=== PATIENT | male | born 1995 | race Caucasian/White ===

== ENCOUNTER 2016-07-10 22:38 | Inpatient (IN) | payer BC, OTHER ==
[~2016-07-10] VITALS: Ht 182.9 cm; Wt 81.6 kg
[2016-07-11] VITALS (7 sets, daily range): BP systolic 95–117; BP diastolic 54–71
[2016-07-11] MEDS ORDERED: MAG HYDROX/AL HYDROX/SIMETH 30 ML LIQUID UDC PO PRN (02:30)
[2016-07-11] MEDS ORDERED: LORAZEPAM 2 MG/1 ML VIAL IM PRN (02:30)
[2016-07-11] MEDS ORDERED: THIAMINE HCL 200 MG/2 ML VIAL IM ONE (02:30)
[2016-07-11] MEDS ORDERED: ACETAMINOPHEN 325 MG TABLET PO PRN (02:30)
[2016-07-11] MEDS ORDERED: LOPERAMIDE HCL 2 MG CAPSULE PO PRN ×2 (02:30)
[2016-07-11] MEDS ORDERED: ONDANSETRON ODT 4 MG TAB.RAPDIS SL PRN (02:30)
[2016-07-11] MEDS ORDERED: DIAZEPAM 10 MG TABLET PO PRN ×4 (02:30→12:00)
[2016-07-11] MEDS ORDERED: LORAZEPAM 1 MG TABLET PO PRN ×2 (02:30)
[2016-07-11] MEDS ORDERED: DIAZEPAM 5 MG TABLET PO PRN ×2 (02:30→12:00)
[2016-07-11] MEDS ORDERED: DICYCLOMINE HCL 20 MG TABLET PO PRN (02:30)
[2016-07-11] MEDS ORDERED: MAGNESIUM HYDROXIDE 30 ML LIQUID UDC PO PRN (02:30)
--- NOTE | 2016-07-11 02:40 | NUR ---
ADMISSION Pt is a 20 yo male who arrived [facility] the [facility] at 0050 on 07/11/16 for medically supervised detox. He is A&O x4 and ambulatory with a steady gait. He was oriented to the unit and shown to his room. Body check performed by T and skin check performed by nurse. Pt does not appear intoxicated and answers questions appropriately. He reports an allergy to Haldol, is full code status, and on a regular diet. Vital signs are B/P 117/71, HR 79, RR 16, O2 sat 97%, and T 97.5, left arm pain 5/10. He has a PMH of seizures related to withdrawal and overdose, MRSA of left arm chemical burn 10/2015, chronic migraines, anxiety, and depression. Last seizure was 12/2015. Pt self reports that he overdosed on 07/09/16 at his home and woke up 07/10/16. Lung sounds clear, PERRLA, bowel sounds present, brisk capillary refill, granite countertop installer equal and strong. Pt has bilateral forearm track harris. The left forearm has a round, warm, hardened area beneath the skin. He reports pain in the left arm which is relieved when elevated. Hands are warm and peripheral pulses present. History of Use 1) ETOH/Whiskey 16 oz 5 days/week for 6 weeks. Last drank 8 oz on 07/09/16. He has drank alcohol since age 12. 2) Xanax 10mg 5 days/week for 6 weeks. Last used 70mg over 3 days 07/07, 07/08, 07/09. He has used BZD's since age 15. 3) Methamphetamine 1 gram 4 days/week for 2 months. Last used 1 gram on 07/09/16. He has used Meth for 6 months. 4) Marijuana 2 grams per day for 2 months. Last used 1 gram on 07/10/16. He has used marijuana for 5 years. Treatment history 1) [facility] 12/2015 for 37 days. Pt had 22 days of sobriety while in treatment. He went to a sober living in [place] after [facility]. Pt admitted to using inhalants while in treatment. His longest period of sobriety is 22 days. Pt smokes cigarettes 10-20 per day. He decided to come to treatment today because "I woke up from an overdose today". Symptoms when he does not use include "pain, insomnia, sweats, tremors". CIWA on admission is 7. Pt has anxiety, flushing, and headache. He does not have a primary care physician at home. Admission orders received. Pt educated regarding use of the call light and all questions answered. Fall and seizure precautions in place. Bed is down with call light in reach.
[2016-07-11] MEDS: IBUPROFEN 400 MG TABLET PO PRN ×2 (02:41→08:15)
[2016-07-11] MEDS ORDERED: IBUPROFEN 400 MG TABLET ONE (02:43)
--- NOTE | 2016-07-11 02:45 | NUR ---
PRN Motrin administration Pt c/o left arm pain 08/12 r/t IV drug use. PRN Motrin administered per orders.
--- NOTE | 2016-07-11 07:01 | NUR ---
Start of Shift Endorsement received from nightshift nurse. Pt is a 20 y/o male admitted for alcohol and xanax dependence. Pt has been placed on a 5 day Subutex taper and 3 day Valium taper. Pt is moderately withdrawing at this time AEB CIWA 7 0400. Pt presents Hx of a seizures and overdose. Pt has received PRN Motrin. VS WNL, Full Code. PT is alert and oriented x4. Pt is in STABLE condition at this time. Remains compliant with medication and diet regimen. All needs have been met, All safety measures in place per hospital policy. Bed in lowest position, side rails up x2, call-light within reach. Will continue to monitor
--- NOTE | 2016-07-11 07:20 | NUR ---
END OF SHIFT Report provided to day shift nurse. Pt is lying in bed resting. He is a 20 [facility]TOH and BZD Dependence with a h/o methamphetamine abuse. PRN Ibuprofen administered for left arm pain. CIWA on admission was 7. He drank 710mL and slept 4 hours. Pt was unable to provide urine sample for UDS. Fall and seizure precautions in place. Bed is down with call light in reach.
[2016-07-11] MEDS: THIAMINE HCL 100 MG TABLET PO SCH (08:14)
[2016-07-11] MEDS: FOLIC ACID 1 MG TABLET PO SCH (08:15)
[2016-07-11] MEDS: MULTIVITAMINS,THERAPEUTIC TABLET PO SCH (08:15)
[2016-07-11 09:40] LABS: *AMPHETAMINE, URINE POSITIVE (NEGATIVE); *BARBITURATE, URINE NEGATIVE (NEGATIVE); *CANNABINOID, URINE POSITIVE (NEGATIVE); *COCCAINE, URINE NEGATIVE (NEGATIVE); *OPIATE, URINE NEGATIVE (NEGATIVE); *PHENCYCLIDINE SCREEN,URINE NEGATIVE (NEGATIVE)
[2016-07-11 11:59] LABS: BASOPHILS # (AUTO) 0.1 K/uL (0.0-0.2); BASOPHILS % (AUTO) 1.2 % (0.0-2.0); EOSINOPHILS # (AUTO) 0.8 K/uL (0.0-0.7); EOSINOPHILS % (AUTO) 12.2 % (0.0-7.0); HEMATOCRIT 46.1 % (35.0-45.0); HEMOGLOBIN 15.5 g/dL (11.5-15.5); LYMPHOCYTES # (AUTO) 2.4 K/uL (0.8-4.8); LYMPHOCYTES % (AUTO) 34.6 % (20.5-74.5); MEAN CORPUSCULAR HEMOGLOBIN 29.8 uug (27.0-31.0); MEAN CORPUSCULAR HGB CONC 34 g/dL (32.0-37.0); MEAN CORPUSCULAR VOLUME 88.8 fL (77.0-95.0); MONOCYTES # (AUTO) 0.8 K/uL (0.1-1.30); NEUTROPHILS # (AUTO) 2.8 K/uL (1.8-8.9); PLATELET COUNT (AUTO) 289 K/uL (150-450); RED BLOOD CELL COUNT(AUTO) 5.19 MIL/uL (3.90-5.30); RED CELL DISTRIBUTION WIDTH 13.1 % (11.5-14.5); WHITE BLOOD COUNT (AUTO) 6.9 K/uL (4.5-14.5)
[2016-07-11] MEDS ORDERED: SUMATRIPTAN SUCCINATE 50 MG TABLET PO PRN (12:00)
[2016-07-11] MEDS ORDERED: ASPIRIN/ACETAMINOPHEN/CAFFEINE TABLET PO PRN (12:00)
[2016-07-11 12:23] LABS: ETHANOL < 3 MG/DL (0-0)
[2016-07-11 12:25] LABS: ALANINE AMINOTRANSFERASE 27 U/L (16-63); ALBUMIN 4.1 g/dL (3.4-5.0); ALKALINE PHOSPHATASE 51 U/L (50-136); AMYLASE 38 U/L (25-115); ASPARTATE AMINOTRANSFERASE 20 U/L (15-37); BILIRUBIN,TOTAL 0.5 mg/dL (0.2-1.0); CALCIUM 9.3 mg/dL (8.5-10.1); CHLORIDE 104 mmol/L (98-107); GFR 95 mL/min (>60); GLUCOSE 115 mg/dL (74-106); LIPASE 164 U/L (73-393); MAGNESIUM 2.2 mg/dL (1.8-2.4); POTASSIUM 3.9 mmol/L (3.5-5.1); SODIUM SERUM 142 mmol/L (136-145); TOTAL PROTEIN, SERUM 7.6 g/dL (6.4-8.2); UREA NITROGEN, BLOOD 10 mg/dL (7-18)
[2016-07-11 12:26] LABS: CARBON DIOXIDE 33 mmol/L (21-32)
[2016-07-11] MEDS: DIAZEPAM 10 MG TABLET PO SCH ×3 (12:30→20:24)
[2016-07-11] MEDS: ESCITALOPRAM OXALATE 10 MG TABLET PO SCH (12:30)
[2016-07-11 12:32] LABS: THYROID STIMULATING HORMONE 0.541 mIU/mL (0.358-3.740)
[2016-07-11 12:37] LABS: HIV-1 p24 ANTIGEN NON REACTIVE (NONREACTIVE); HIV-1/2 ANTIBODY NON REACTIVE (NONREACTIVE)
[2016-07-11] MEDS: GABAPENTIN 300 MG CAPSULE PO SCH ×2 (15:11→20:24)
--- NOTE | 2016-07-11 15:11 | NUR ---
PRN Medication Pt reports having diarrhea x2. Administered Imodium 4mg per MD.
--- NOTE | 2016-07-11 19:29 | NUR ---
End of Shift Endorsement given to nightshift nurse. Pt is a 20 y/o male admitted for alcohol and xanax dependence. Pt has been placed on a 5 day Subutex taper and 3 day Valium taper. Pt is mildly withdrawing at this time AEB CIWA 2 1600. Pt presents Hx of a seizures and overdose. Pt has received PRN Motrin for arm pain and Imodium for reported diarrhea. Pt has participated in groups and activities. Intake: 2200ml, Void x4, BM x0. VS WNL, Full Code. PT is alert and oriented x4. Pt is in STABLE condition at this time. Remains compliant with medication and diet regimen. All needs have been met, All safety measures in place per hospital policy. Bed in lowest position, side rails up x2, call-light within reach. Will continue to monitor
--- NOTE | 2016-07-11 20:00 | NUR ---
START OF SHIFT Received report from day shift nurse. Pt attended a group meeting and returned to his room after. He is a 20 yo male admitted to [facility] today for ETOH and BZD Dependence. He is A&O x4 and ambulatory. Allergic to haldol, full code, and on a regular diet. He has a PMH of seizure related to overdose and withdrawals, MRSA of left arm chemical burn 10/2015, chronic migraines, anxiety, and depression. On admission he admitted to drinking ETOH/whiskey 16oz 5 days/week, Xanax 10mg 5 days per week, methamphetamine IV 1 gram 4x/week, marijuana 2 grams per day. He reports feeling "uneasy", anxious, having a knot in his stomach, with occasional nausea and a headache. He has flushed and moist skin. Pt has pain and mild weakness of the left upper extremity due to IV drug use. MD aware. He denies any recent episodes of diarrhea. Pt started a 5 day valium taper today. Fall and seizure precautions in place. Bed is down with call light in reach.
--- NOTE | 2016-07-11 20:25 | NUR ---
PRN Tylenol administration Pt reports left wrist pain 5/10. PRN Tylenol administered.
--- NOTE | 2016-07-11 21:25 | NUR ---
PRN Tylenol reassessment PRN Tylenol somewhat effective. Pt reports reduced left wrist pain. No further medication requested.
[2016-07-11] MEDS: diphenhydrAMINE 50 MG CAPSULE PO PRN (22:09)
[2016-07-11] MEDS: HYDROXYZINE PAMOATE 25 MG CAPSULE PO PRN (22:09)
--- NOTE | 2016-07-11 22:10 | NUR ---
PRN Benadryl and Vistaril reassessment Pt c/o feeling anxious and unable to relax to fall asleep. Face is flushed and skin is moist. PRN Vistaril and Benadryl administered. Addendum: 07/12/16 at 0533 by GINNA RAGSDALE RN Correction: PRN Benadryl and Vistaril administration.
--- NOTE | 2016-07-11 22:10 | NUR ---
PRN Imitrex Pt c/o migraine headache. PRN Imitrex administered.
--- NOTE | 2016-07-11 23:10 | NUR ---
PRN Vistaril and Benadryl reassessment PRN Vistaril and Benadryl effective. Pt is lying in bed resting with eyes closed. Respirations even and unlabored. Bed is down with call light in reach.
--- NOTE | 2016-07-11 23:10 | NUR ---
PRN Imitrex reassessment PRN Imitrex effective. Pt is lying comfortably in bed resting with eyes closed. Respirations even and unlabored. Bed is down with call light in reach.
[2016-07-12] VITALS: BP 101/53
[2016-07-12 04:00] VITALS: BP 102/55
--- NOTE | 2016-07-12 07:22 | NUR ---
END OF SHIFT Received report from day shift nurse. Pt attended a group meeting and returned to his room after. He is a 20 yo male admitted to [facility] for ETOH and BZD Dependence. He is A&O x4 and ambulatory. Allergic to haldol, full code, and on a regular diet. He has a PMH of seizure related to overdose and withdrawals, MRSA of left arm chemical burn 10/2015, chronic migraines, anxiety, and depression. On admission he admitted to drinking ETOH/whiskey 16oz 5 days/week, Xanax 10mg 5 days per week, methamphetamine IV 1 gram 4x/week, marijuana 2 grams per day. Pt has pain and mild weakness of the left upper extremity due to IV drug use. MD aware. He is ordered an MRI with contrast of the left arm. Pt started a 5 day valium taper on 07/11. No diarrhea throughout the night. PRN Vistaril, Benadryl, and Imitrex administered. Last CIWA was 7. He drank 710mL and slept 7 hours. Fall and seizure precautions in place. Bed is down with call light in reach.
--- NOTE | 2016-07-12 07:25 | NUR ---
Start Of Shift Received report from second shift supervisor nurse. Pt is a 20 year old male admitted on 07/11/16 ETOH and BZD Dependence. Pt is full code, regular diet on fall and seizure precautions states that he is allergic to haloperidol. He has a PMH of seizure related to overdose and withdrawals, MRSA of left arm chemical burn 10/2015, chronic migraines, anxiety, and depression. Pt has pain and mild weakness of the left upper extremity due to IV drug use. MD aware. He is ordered an MRI with contrast of the left arm today. Pt started a 5 day Valium taper on 07/11. Pt received PRN Vistaril, Benadryl, and Imitrex last night which was effective per second shift supervisor nurse. Treatment plan tolerated well by the patient as evidenced by ptst last CIWA score of 7 which was taken at 0400. Pt slept a total of 7 hours last night. Pt is currently in his room laying in bed watching TV. All safety measures in place per hospital policy. Bed in lowest position, side rails up x2, call-light within reach. Will continue to monitor and provide support.
[2016-07-12 08:00] VITALS: BP 112/66
[2016-07-12] MEDS ORDERED: TUBERCULIN,PURIF.PROT.DERIV. 5 TU/0.1 ML TEST ID ONE (09:00)
[2016-07-12] MEDS: ESCITALOPRAM OXALATE 10 MG TABLET PO SCH (10:01)
[2016-07-12] MEDS: DIAZEPAM 10 MG TABLET PO SCH ×4 (10:01→21:37)
[2016-07-12] MEDS: THIAMINE HCL 100 MG TABLET PO SCH (10:01)
[2016-07-12] MEDS: FOLIC ACID 1 MG TABLET PO SCH (10:01)
[2016-07-12] MEDS: GABAPENTIN 300 MG CAPSULE PO SCH ×3 (10:01→21:37)
[2016-07-12] MEDS: MULTIVITAMINS,THERAPEUTIC TABLET PO SCH (10:02)
--- NOTE | 2016-07-12 11:32 | NUR ---
TEXTED DR. PETERSEN FOR MRI APPROVAL.
--- NOTE | 2016-07-12 11:52 | NUR ---
SPOKE TO PATIENTS NURSE YOLANDA, TO SENT THE PATIENT TO [facility] @ 7PM FOR 7.30PM APPT AND PATIENT TO HAVE A GOOD WORKING IV / MRI CHECKLIST AND CONSTANT DONE AN SIGNED.NURSE HAVE MY PHONE # INCASE IF ANY CHANGES.
--- NOTE | 2016-07-12 11:53 | NUR ---
Communication with Radiology Received a call from Stef Gillette from radiology, pt is approved for MRI with contrast, Med response contacted a brain picker was reserved @ 1900 from [facility] 3rd floor. Pt will be picked up @ 1900 to be transferred to [facility] for the procedure. Stef Gillette requested for pt to have a 20G working IV, MRI check list and a signed consent form. aware of transfer. Will continue to monitor and provide support.
[2016-07-12 12:00] VITALS: BP 128/82
[2016-07-12] MEDS: CLONIDINE HCL 0.1 MG TABLET PO PRN ×2 (13:00→22:55)
[2016-07-12] MEDS ORDERED: DIAZEPAM 10 MG TABLET PO ONE (13:00)
[2016-07-12 16:00] VITALS: BP 122/82
[2016-07-12] MEDS ORDERED: GADOVERSETAMIDE 2.5 MMOL/5 ML VIAL ONE (16:05)
--- NOTE | 2016-07-12 18:55 | NUR ---
Pt Picked up Pt has been picked up by the ambulance to be transferred to [facility] for the procedure. report given to the shuttle truck driver, pt had an IV inserted in his left AC 20G, MRI check list completed consent signed and given to shuttle truck driver Pts VS WNL pt left in stable condition. MD aware of patients departure.
--- NOTE | 2016-07-12 19:00 | NUR ---
START OF SHIFT NOTE Received report from day shift nurse. Pt is 20 y o male, admitted on 07/11/16 for ETOH (16 oz x 5 days a week), Xanax (10 mg daily x 5 days a week), methamphetamine and marijuana dependence. P is on 5 day Valium taper started 07/11/16. Pt currently in [facility] for scheduled MRI of right arm. PMH of migraines, anxiety, depression, seizures r/t withdrawal. Pt allergic to Hald ol, is on regular diet, full code. Pt is on fall and seizure precautions. Addendum: 07/14/16 at 0615 by ROSALINE GOMEZ RN left arm
--- NOTE | 2016-07-12 19:36 | NUR ---
End Of Shift Pt is a 20 year old male admitted on 07/11/16 ETOH and BZD Dependence. Pt is full code, regular diet on fall and seizure precautions states that he is allergic to haloperidol. He has a PMH of seizure related to overdose and withdrawals, MRSA of left arm chemical burn 10/2015, chronic migraines, anxiety, and depression. Pt has pain and mild weakness of the left upper extremity due to IV drug use. MD aware pt has been transferred to [facility] for MRI procedure. Pt received CXR for clearance of active TB. Pt had a 20G IV inserted in his left AC. Pt started a 5 day valium taper on 07/11. Pt received PRN Clonidine medication was effective. Treatment plan tolerated well by the patient as evidenced by ptst last CIWA score of 5 which was taken at 1600. Pts vital signs within normal limits, A/Ox4, denies chest pain. Respirations even unlabored, lungs clear upon auscultation abdomen soft and non- distended. Pt denies nausea, vomiting and diarrhea. Pt total fluid intake was 2334ml with 2 voids and no stool. Safety measures in place, call light within reach. All pertinent information discussed with third shift lieutenant, endorsement given to third shift lieutenant nurse.
[2016-07-12 20:00] VITALS: BP 125/72
--- NOTE | 2016-07-12 20:45 | NUR ---
PT BACK TO FLOOR Pt back from diagnostic procedure, aaox4, ambulatory. PIV to right forearm 22G, discontinue per order. VS taken and recorded. Pt reports mild anxiety, fatigue, tingling to right arm, weak hand manager surgery to right arm, sweats. Radial pulses strong and symmetrical, cap refill <3 sec. Will continue to monitor Addendum: 07/14/16 at 0615 by ROSALINE GOMEZ RN left forearm
--- NOTE | 2016-07-12 22:25 | NUR ---
RN note IV removal Pt's IV access removed, pressure dressing applied, no bleeding noted. Catheter is intact.
[2016-07-12] MEDS: diphenhydrAMINE 50 MG CAPSULE PO PRN (22:55)
--- NOTE | 2016-07-12 22:55 | NUR ---
PRN BENADRYL AND CLONIDINE Pt c/o anxiety, sweats and insomnia, reinforced on deep breathing for relaxation - without effect. BP 119/68, administered Clonidine 0.1 mg PO prn and Benadryl 50 mg PO prn. Side rails up x 2, call light within reach, bed locked in lowest position. Will continue to monitor
[2016-07-13] VITALS: BP 94/45
--- NOTE | 2016-07-13 | NUR ---
REASSESSMENT Pt in bed, resting quietly. Noted moderate sweat, pt reports decrease in anxiety and states "i feel relaxed now". CIWA score 2. Will continue to monitor
[2016-07-13 04:00] VITALS: BP 93/44
--- NOTE | 2016-07-13 04:00 | NUR ---
ADRY DEFERRED Pt ADRY aparicio assessment deferred per MD order Addendum: 07/13/16 at 0528 by ROSALINE GOMEZ RN Amended: Links added.
--- NOTE | 2016-07-13 07:14 | NUR ---
END OF SHIFT NOTE Pt is 20 y o male, admitted on 07/11/16 for ETOH (16 oz x 5 days a week), Xanax (10 mg daily x 5 days a week), methamphetamine and marijuana dependence. Pt is on day 3 of 5 day Valium taper started 07/11/16. Pt experienced withdrawal s/s of anxiety, sweats; COWS scores ranged 5 to 2, last COWS was 2 at 0400. VSS. Pt received prn Clonidine and Benadryl at 2255 for anxiey, sweats, insomnia, medications were effective; pt reported decrease in s/s, was able to sleep for 8 hrs. Pt had MRI of right arm done 07/12/16 r/t loss of sensation and muscular weakness, results pending. PMH of migraines, anxiety, depression, seizures r/t withdrawal. Pt allergic to Haldol, is on regular diet, full code. Pt is on fall and seizure precautions. Repor endorsed to day shift nurse. Addendum: 07/14/16 at 0616 by ROSALINE GOMEZ RN left arm
--- NOTE | 2016-07-13 07:20 | NUR ---
Start Of Shift Received report from material handler 2nd shift nurse. Pt is a 20 year old male admitted on 07/11/16 ETOH and BZD Dependence. Pt is full code, regular diet on fall and seizure precautions reports allergy to haloperidol. Pt in on a 5 day Valium taper started on 07/11/16. Reports PMH of seizure related to overdose and withdrawals, MRSA of left arm chemical burn 10/2015, chronic migraines, anxiety, and depression. Pt been having mild weakness of the left upper extremity due to IV drug use for which he had a contrast MRI completed at [facility] Results pending. MD aware. Pt received PRN Benadryl, and clonidine last night which was effective per material handler 2nd shift nurse. Treatment plan tolerated well by the patient as evidenced by pt's last CIWA score of 2 which was taken at 0400. Pt slept a total of 8 hours last night. Pt is currently in his room laying in bed watching TV. All safety measures in place per hospital policy. Bed in lowest position, side rails up x2, call-light within reach. Will continue to monitor and provide support.
[2016-07-13 08:00] VITALS: BP 118/73
[2016-07-13] MEDS: GABAPENTIN 300 MG CAPSULE PO SCH ×3 (09:59→21:28)
[2016-07-13] MEDS: CLONIDINE HCL 0.1 MG TABLET PO PRN (09:59)
[2016-07-13] MEDS: MULTIVITAMINS,THERAPEUTIC TABLET PO SCH (09:59)
[2016-07-13] MEDS: THIAMINE HCL 100 MG TABLET PO SCH (09:59)
[2016-07-13] MEDS: DIAZEPAM 5 MG TABLET PO SCH ×4 (09:59→21:28)
[2016-07-13] MEDS: FOLIC ACID 1 MG TABLET PO SCH (09:59)
[2016-07-13] MEDS: ESCITALOPRAM OXALATE 10 MG TABLET PO SCH (10:00)
[2016-07-13] MEDS: HYDROXYZINE PAMOATE 25 MG CAPSULE PO PRN ×2 (11:10→23:00)
--- NOTE | 2016-07-13 11:10 | NUR ---
PRN MEDICATION Pt c/o some anxiety requested something for relief, non-pharmacological techniques interventions provided x3 and were not effective. PRN Vistaril 25mg administered PO, educated pt about s/e of medication and when to contact nurse. All needs met, all safety measures in place, will continue to monitor.
[2016-07-13 12:00] VITALS: BP 125/76
--- NOTE | 2016-07-13 12:10 | NUR ---
PRN REASSESSMENT Upon reassessment medication noted to be effective pt reported a decrease in pain to 1/10. Instructed pt to contact nurse if pain reoccurred. All needs met, all safety measures in place will continue to monitor.
[2016-07-13 16:00] VITALS: BP 109/61
--- NOTE | 2016-07-13 19:15 | NUR ---
End Of Shift Pt is a 20 year old male admitted on 07/11/16 ETOH and BZD Dependence. He has a PMH of seizure related to overdose and withdrawals, MRSA of left arm chemical burn 10/2015, chronic migraines, anxiety, and depression. Pt placed a 5 day Valium taper on . Pt received PRN Vistaril for anxiety medication was effective. Treatment plan tolerated well by the patient as evidenced by pt's last CIWA score of 7 which was taken at 1600. Pt's vital signs within normal limits, A/Ox4, denies chest pain. Respirations even unlabored, lungs clear upon auscultation abdomen soft and non- distended. Pt denies nausea, vomiting and diarrhea. Pt total fluid intake was 2710ml with 1 voids and no stool. Safety measures in place, call light within reach. All pertinent information discussed with shift commander, endorsement given to shift commander nurse.
--- NOTE | 2016-07-13 19:42 | NUR ---
START OF SHIFT NOTE Received report from day shift nurse. Pt is 20 y o male, admitted on 07/11/16 for ETOH (16 oz of whiskey 5 days a week), Xanax (10 mg daily for 5 days a week), methamphetamine IV ad marijuana dependence. Pt continues on 5 day valium taper started 07/11/16. Pt in room, aaox4. Reports moderate anxiety, reinforced on relaxations techniques. Pt denies SI/HI. Pt c/o chills, restlessness. Skin intact, warm. No tremors noted. Pt reports tingling to left arm, noted weak hand community representative on left arm. Pt has had MRI of left arm done 07/12/16, no abnormalities noted. RR unlabored, heart rate regular; radial pulses strong and symmetrical. Bowel sounds active x 4, pt denies n/v/d. Pt denies urinary difficulties. PMH of anxiety, depression, migraines, withdrawal seizures. Pt is on fall and seizure precautions. Allergic to Haldol, full code, regular diet. Side rails up x 2, call light within reach, bed locked in lowest position. Will continue with plan of care.
[2016-07-13 20:00] VITALS: BP 138/72
[2016-07-13] MEDS ORDERED: KETOROLAC TROMETHAMINE 30 MG INJ IM PRN (21:00)
[2016-07-13] MEDS ORDERED: IBUPROFEN 600 MG TABLET PO PRN (21:00)
[2016-07-13] MEDS: diphenhydrAMINE 50 MG CAPSULE PO PRN (22:55)
--- NOTE | 2016-07-13 23:00 | NUR ---
PRN BENADRYL AND VISTARIL pr reorts increasing anxiety and insomnia. BP 110/51, HR 85. CIWA score 4. Administered prn Benadryl 50 mg for sleep PO and prn Vistaril 50 mg PO for anxiety. Pt in bed, side rails up x 2, call light within reach, will cont to monitor
[2016-07-14] VITALS: BP 105/53
--- NOTE | 2016-07-14 | NUR ---
REASSESSMENT Pt in bed, ready to sleep; states anxiety level decreased, CIWA =4, BP 105/53, HR 66. Seizure and fall precautions in place. Will continue to monitor
[2016-07-14 04:00] VITALS: BP 130/83
[2016-07-14 05:22] LABS: HEPATITIS B CORE AB, IgM Negative (Negative); HEPATITIS B SURFACE AG Negative (Negative)
--- NOTE | 2016-07-14 07:33 | NUR ---
END OF SHIFT NOTE Pt is 20 y o male, admitted on 07/11/16 for ETOH (16 oz of whiskey 5 days a week), Xanax (10 mg daily for 5 days a week), methamphetamine IV ad marijuana dependence. Pt is on day 4 of 5 day valium taper started 07/11/16. Pt had withdrawal s/s of anxiety, chills, restlessness, tingling to left arm. All schedule medications were given as ordered, pt received prn visaril 50 mg and Benadryl 50 mg at 2300, was effective: pt verbalized relief of anxiety in 1 hr post-administration; slept for total of 6 hrs. VSS. Last CIWA 3 at 0400. PMH of anxiety, depression, migraines, withdrawal seizures. Pt is on fall and seizure precautions. Allergic to Haldol, full code, regular diet. Report endorsed to day shift nurse.
[2016-07-14 08:00] VITALS: BP 106/61
[2016-07-14] MEDS: GABAPENTIN 300 MG CAPSULE PO SCH ×3 (09:00→21:34)
--- NOTE | 2016-07-14 09:00 | NUR ---
PRN CLONIDINE PER PT'S REQUEST GIVEN FOR REPORTED ANXIETY AND RESTLESSNESS. HE STATES THE CLONIDINE HELPS HIM. WILL MONITOR EFFECTIVENESS.
[2016-07-14] MEDS: THIAMINE HCL 100 MG TABLET PO SCH (09:01)
[2016-07-14] MEDS: MULTIVITAMINS,THERAPEUTIC TABLET PO SCH (09:01)
[2016-07-14] MEDS: DIAZEPAM 5 MG TABLET PO SCH ×3 (09:01→21:34)
[2016-07-14] MEDS: ESCITALOPRAM OXALATE 10 MG TABLET PO SCH (09:01)
[2016-07-14] MEDS: FOLIC ACID 1 MG TABLET PO SCH (09:01)
[2016-07-14] MEDS: CLONIDINE HCL 0.1 MG TABLET PO PRN ×2 (09:09→23:12)
--- NOTE | 2016-07-14 09:17 | NUR ---
START OF SHIFT: RECEIVED PT A/O X 4. HE PRESENTS WITH IRRITABLE MOOD AND CONGRUENT AFFECT. HE REPORTS MILD ANXIETY. HE STATES HE SLEPT WELL BUT IT TOOK TIME TO FALL ASLEEP. VALIUM TAPER IN PROGRESS. ADRY 1. ENCOURAGED GROUP ATTENDANCE TO IMPROVE COPING SKILLS AND PREVENT RELAPSE. WILL CONTINUE TO MONITOR AND PROVIDE SAFE AND SUPPORTIVE ENVIRONMENT. Addendum: 07/14/16 at 0921 by SHEREE HOWELL RN START OF SHIFT AT 0805
--- NOTE | 2016-07-14 09:30 | NUR ---
PRN CLONIDINE WAS EFFECTIV. PT STATES HIS ANXIETY AND RESTLESSNESS IS REDUCED.
[2016-07-14 12:00] VITALS: BP 117/70
[2016-07-14 16:00] VITALS: BP 106/64
--- NOTE | 2016-07-14 18:54 | NUR ---
START OF SHIFT NOTE Patient endorsed by outgoing day shift nurse. SBAR report received. Patient is 20 years old male admitted to [facility] on 07/11/16 for Benzo, ETOH, Methamphetamine (IV); and Marijuana Dependence, placed on 5 day Valium Taper started on 07/12/11. Patient reported of Allergy to Haldol, Regular Diet. Patient placed on Full Code, Fall and Seizures Precautions. Past Medical History: Seizures r/t overdose and withdrawal; MRSA of the Left Arms chemical burn on 10/2015; Chronic Migraines. Anxiety Disorder; Depression Disorder. Substance Use History: ETOH: Whiskey: 16 oz 5 days of week for 6 weeks, since 05/30/16. Last used 8 oz on 07/09/16. He has used Alcohol for 8 years. XANAX: 10 mg 5 days/week for 6 weeks, since 05/30/16. Last used 70 mg from 07/07/16 to 07/09/16. He has used Benzo for 5 years. METHAMPHETAMINE IV: 1 gram 4 days/week. Last used 1 gram on 07/09/16. He has used Methamphetamine for6 months. MARIJUANA: 2 grams/daily for 2 months. Last used 1 gram on 07/07/16. He has used Marijuana for 5 years. Recent Hospitalizations/Treatment History: "[facility] since 12/2015 for 37 days and sober living in [place] after". Upon assessment patient is alert and oriented x4. Speech is soft. CIWA 4: c/o increased anxiety, nervousness, sweating, Bone and Joint aches. VS: T: 98.6; BP: 122/68; HR:86; Room Air O2 Sat: 97%; RR: 18. Generalized pain level 5/10.Labs results for MRSA received: negative. Chest X-Ray done: No abnormality found. Doctor aware. Breathing is unlabored and even. Lungs Sounds are clear BS is active in all x 4 quadrants. Last BM's today. Skin is warm and moist by touch. Patient has bilateral FA track harris. Right FA's round, raised, tough area r/t IV drugs's used m/b swelling, numbness and parenthesis. Contrast MRI of the Left Upper Extremity of the Left Upper extremity done as ordered.Results received: No gross abnormality found. Doctor aware. Patient attended activities groups. Patient was educated for safety issues: keep bed in lowest position and locked, rails up x2. Patient returned his Knowledge back by verbalized understanding. Patient remains compliant with therapeutic plan, medications and diet regime. All Safety met by hospital policy: Call Light within reach; Bed in lowest position and locked, rails up x2. Will continue to monitor.
--- NOTE | 2016-07-14 18:54 | NUR ---
END OF SHIFT: PT CONTINUES ON VALIUM TAPER. CLONIDINE PRN GIVEN THIS AM AND EFFECTIVE.LAST CIWA 4. HIS MOOD IS LABILE AND CAN GET AGITATED VERY QUICKLY. HE IS EASILY REDIRECTED. PT INTERACTED WITH PEERS AND ATTENDED GROUPS TODAY. HE STATES THE DETOX MEDS ARE EFFECTIVE. LAST CIWA 4. WILL PASS SHIFT REPORT TO ONCOMING NIGHT NURSE.
[2016-07-14 20:00] VITALS: BP 122/68
[2016-07-14] MEDS: diphenhydrAMINE 50 MG CAPSULE PO PRN (23:12)
--- NOTE | 2016-07-14 23:12 | NUR ---
PRN BENADRYL PO AND PRN CLONIDINE PO ADMINISTRATED Patient c/o insomnia, increased anxiety, and diaphoresis. Patient's assessed. VS: T: 98'4; HR: 85; BP:108/62;Room Air O2 Sat: 99%; RR: 17. PRN Clonidine PO and PRN Benadryl PO was discussed with patient. Patient's educated for actions,adverse reactions, and side effects of Benadryl and Clonidine. Patient returned his knowledge back by verbalized understanding. PRN Benadryl PO and PRN Clonidine PO administrated as ordered with full glass(240 ml/8 oz) of the water. Patient tolerated well.All Safety met by hospital policy: Call Light within reach; Bed in lowest position and locked, rails up x2. Will continue to monitor.
[2016-07-15] VITALS: BP 108/62
--- NOTE | 2016-07-15 00:12 | NUR ---
RE-ASSESSMENT Patient is sleeping in his bed. RR:15. PRN Benadryl PO and PRN Clonidine PO were effective. All Safety met by hospital policy: Call Light within reach; Bed in lowest position and locked, rails up x2. Will continue to monitor.
[2016-07-15 04:00] VITALS: BP 102/62
--- NOTE | 2016-07-15 06:58 | NUR ---
END OF SHIFT NOTE Patient endorsed by outgoing day shift nurse. SBAR report received. Patient is 20 years old male admitted to [facility] on 07/11/16 for Benzo, ETOH, Methamphetamine (IV); and Marijuana Dependence, placed on 5 day Valium Taper started on 07/12/11. Patient reported of Allergy to Haldol, Regular Diet. Patient placed on Full Code, Fall and Seizures Precautions. Last shift CIWA decreased from 5 to 3. Patient presented with mild anxiety, agitation, nervousness, sweating, Bone and Joint aches. Last VS at 04:00: T: 98.6; BP: 102/62; HR:83; Room Air O2 Sat: 99%; RR: 16. Patient has bilateral FA track harris. Right FA's round, raised, tough area r/t IV from drugs used m/b swelling, numbness and parenthesis. Contrast MRI of the Left Upper Extremity of the Left Upper extremity done as ordered .Results received: No gross abnormality found. Doctor aware. Patient attended activities groups. PRN Benadryl PO and PRN Clonidine PO administrated to patient and were effective. Patient remains complaint with treatment plan, medications, and diet regime. Patient slept 6 hours; Intake: 1,800 ml; Voided x1. All Safety met by hospital policy: Call Light within reach; Bed in lowest position and locked, rails up x2. Patient endorsed to day shift nurse in stable condition. SBAR report given. Addendum: 07/15/16 at 0727 by JOSE ORTEGA RN Patient endorsed to day shift nurse in stable condition. SBAR report given.
[2016-07-15 08:00] VITALS: BP 90/60
--- NOTE | 2016-07-15 08:20 | NUR ---
START OF SHIFT: RECEIVED PT A/O X 4. HE PRESENTS WITH GUARDED AFFECT AND ANXIOUS MOOD.VALIUM TAPER IN PROGRESS. CIWA 2. HE STATES THE VALIUM IS EFFECTIVE IN REDUCING ANXIETY AND RESTLESSNESS. HE STATES HE IS ATTENDING GROUPS AND ACTIVITIES. WILL CONTINUE TO MONITOR AND OFFER SAFE AND SUPPORTIVE ENVIRONMENT.
[2016-07-15] MEDS: FOLIC ACID 1 MG TABLET PO SCH (09:25)
[2016-07-15] MEDS: DIAZEPAM 5 MG TABLET PO SCH ×2 (09:25→20:47)
[2016-07-15] MEDS: MULTIVITAMINS,THERAPEUTIC TABLET PO SCH (09:25)
[2016-07-15] MEDS: THIAMINE HCL 100 MG TABLET PO SCH (09:25)
[2016-07-15] MEDS: ESCITALOPRAM OXALATE 10 MG TABLET PO SCH (09:26)
[2016-07-15] MEDS: GABAPENTIN 300 MG CAPSULE PO SCH ×3 (10:24→20:46)
[2016-07-15 12:00] VITALS: BP 105/71
[2016-07-15 16:00] VITALS: BP 113/74
--- NOTE | 2016-07-15 19:07 | NUR ---
END OF SHIFT: PT CONTINUES ON VALIUM TAPER. HE STATES THE VALIUM IS EFFECTIVE. LAST CIWA 1. HE IS INTERACTING WITH PEERS AND ATTENDING GROUPS. HIS MOOD AND AFFECT REMAIN LABILE. HE IS COMPLIANT WITH MEDICATIONS AND TX PLAN. PT STATES HE IS MOTIVATED TO STAY CLEAN AND SOBER. WILL PASS SHIFT REPORT TO ONCOMING NIGHT NURSE.
[2016-07-15 20:00] VITALS: BP 102/82
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
[2016-07-15] MEDS: TRAZODONE 50 MG TABLET PO PRN (23:45)
[2016-07-16] VITALS: BP 114/69
--- NOTE | 2016-07-16 | NUR ---
0000 Vital Signs - PRN Administration BP 114/69, pulse 81, SpO2 96%, respirations 14, temp 98, no reports of pain , 0/10, CIWA 1. Trazodone 50mg PRN administered for sleep. Safety measures in place. Will continue to monitor.
--- NOTE | 2016-07-16 01:00 | NUR ---
PRN Reassessment Upon reassessment, pt is sleeping, Trazodone effective. Respirations unlabored - no distress noted. Safety measures in place. Will continue to monitor.
--- NOTE | 2016-07-16 04:00 | NUR ---
Pt refused to be woken up for VS at this time. Pt was encouraged x3 risks and benefits explained pt continued to refuse. CIWA deferred d/t pt sleeping to assess while awake as ordered. Safety measures in place. Will continue to monitor.
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
--- NOTE | 2016-07-16 07:09 | NUR ---
Start of Shift Endorsement received from nightshift nurse. Pt is a 20 y/o male admitted for alcohol and benzo dependence. Pt was placed on a 5 day Valium taper, pt has completed the taper. Pt is tolerating the taper well AEB CIWA 1. Pt received Trazodone to help him sleep, medication was effective AEB pt reports sleeping 6 hours. VS WNL. Full Code. PT is alert and oriented x4. Pt is in STABLE condition at this time. Remains compliant with medication and diet regimen. All needs have been met, All safety measures in place per hospital policy. Bed in lowest position, side rails up x2, call-light within reach. Will continue to monitor
[2016-07-16 08:00] VITALS: BP 102/60
[2016-07-16] MEDS: ESCITALOPRAM OXALATE 10 MG TABLET PO SCH (09:18)
[2016-07-16] MEDS: MULTIVITAMINS,THERAPEUTIC TABLET PO SCH (09:19)
[2016-07-16] MEDS: FOLIC ACID 1 MG TABLET PO SCH (09:19)
[2016-07-16] MEDS: GABAPENTIN 300 MG CAPSULE PO SCH ×3 (09:19→20:45)
[2016-07-16] MEDS: THIAMINE HCL 100 MG TABLET PO SCH (09:19)
[2016-07-16] MEDS ORDERED: TRAZ-144 PO (10:16)
[2016-07-16] MEDS ORDERED: Gabapentin PO (10:16)
[2016-07-16] MEDS ORDERED: CLON0.1T14 PO (10:16)
[2016-07-16] MEDS ORDERED: SUMA50TA PO (10:16)
[2016-07-16] MEDS ORDERED: HYDR-3895 PO (10:16)
[2016-07-16] MEDS ORDERED: ESCI10TA PO (10:16)
[2016-07-16 12:00] VITALS: BP 129/71
[2016-07-16 13:32] LABS: *AMPHETAMINE, URINE NEGATIVE (NEGATIVE); *BARBITURATE, URINE NEGATIVE (NEGATIVE); *CANNABINOID, URINE POSITIVE (NEGATIVE); *COCCAINE, URINE NEGATIVE (NEGATIVE); *OPIATE, URINE NEGATIVE (NEGATIVE); *PHENCYCLIDINE SCREEN,URINE NEGATIVE (NEGATIVE)
[2016-07-16 16:00] VITALS: BP 110/72
--- NOTE | 2016-07-16 19:06 | NUR ---
End of Shift Endorsement given to nightshift nurse. Pt is a 20 y/o male admitted for alcohol and benzo dependence. Pt was placed on a 5 day Valium taper, pt has completed the taper. Pt is tolerating the taper well AEB CIWA 0. Pt participated in groups and activities. Educated pt on importance of learning new coping skills to deal with stress and anxiety to prevent future relapse. Educated pt on importance of identifying triggers that cause his relapse to help him be successful at being sober. Pt reports readiness for sobriety. Pt is being discharged on 07/17/16, all documentation has been completed. Urine sample has been collected for drug screen and results have been printed. Intake: 3000ml, Void x5, BM x0. VS WNL. Full Code. PT is alert and oriented x4. Pt is in STABLE condition at this time. Remains compliant with medication and diet regimen. All needs have been met, All safety measures in place per hospital policy. Bed in lowest position, side rails up x2, call-light within reach. Will continue to monitor
--- NOTE | 2016-07-16 19:30 | NUR ---
START OF SHIFT NOTE : t is a 20 y/o male admitted for alcohol and benzo dependence. Pt was placed on a 5 day Valium taper, pt has completed the taper. Pt is tolerating the taper well AEB CIWA 1 at 16:00. VS WNL. Full Code. PT is alert and oriented x4. Pt is in STABLE condition at this time. Remains compliant with medication and diet regimen. All needs have been met, he is scheduled to D/C tomorrow. All safety measures in place per hospital policy. Bed in lowest position, side rails up x2, call-light within reach. Will continue to monitor
[2016-07-16 20:00] VITALS: BP 120/84
[2016-07-16] MEDS: TRAZODONE 50 MG TABLET PO PRN (20:46)
[2016-07-16] MEDS: CLONIDINE HCL 0.1 MG TABLET PO PRN (20:46)
--- NOTE | 2016-07-16 21:00 | NUR ---
PRN TRAZODONE, CLONIDINE Pt. complains of sleeplessness, flashes. PRN TRAZODONE, CLONIDINE given as ordered . Safety measures in place : bed on lowest position with side rails x2 up for safety, call light within reach. Will continue to monitor closely and offer help.
--- NOTE | 2016-07-16 21:55 | NUR ---
REASSESSMENT PRN TRAZODONE, CLONIDINE Pt. is ready to sleep, no falshes observed. Safety measures in place : bed on lowest position with side rails x2 up for safety, call light within reach. Will continue to monitor closely and offer help.
[2016-07-17 04:00] VITALS: BP 102/54
--- NOTE | 2016-07-17 06:47 | NUR ---
END OF SHIFT NOTE : Pt. is a 20 y/o male admitted for alcohol and benzo dependence. Pt. was placed on a 5 day Valium taper, pt has completed the taper. VS WNL. Full Code. PT is alert and oriented x4. Pt is in STABLE condition at this time. Pt remains compliant with the treatment plan. Pt denies nausea, vomiting and diarrhea. PRN Trazodone , Clonidin were given during my shift. V/S remain WNL. RR=16, even and unlabored, lungs clear upon auscultation, abdomen soft and non- distended. LAST CIWA=1 at 0400 , [id number] ml, voided x 2, slept 6 hours. Pt. will be D/C today , UDS results available in PC chart. Safety measures in place : bed on lowest position with side rails x2 up for safety, call light within reach. Will continue to monitor closely and offer help.
--- NOTE | 2016-07-17 07:30 | NUR ---
START OF SHIFT Received report from nurse. 20 year old male patient admitted on 07/11/16 for ETOH, Xanax, Methamphetamine and marijuana use. Pt is A/O x4. Pt has completed 5 day Valium taper and is medically cleared for discharge. Pt remains seizure free throughout hospitalization. Remains calm, compliant and cooperative with treatment plan. PRN Trazodone and Clonidine administered at night and effective. Pt slept for 6 hours. Most recent CIWA is 1. All needs met at this time. RR even and unlabored. V/S remain WNL. Safety precautions are in place, will continue to monitor.
[2016-07-17 08:12] VITALS: BP 111/55
[2016-07-17] MEDS: GABAPENTIN 300 MG CAPSULE PO SCH (08:22)
[2016-07-17] MEDS: THIAMINE HCL 100 MG TABLET PO SCH (08:23)
[2016-07-17] MEDS: ESCITALOPRAM OXALATE 10 MG TABLET PO SCH (08:23)
[2016-07-17] MEDS: FOLIC ACID 1 MG TABLET PO SCH (08:23)
[2016-07-17] MEDS: MULTIVITAMINS,THERAPEUTIC TABLET PO SCH (08:23)
--- NOTE | 2016-07-17 09:31 | NUR ---
D/C NOTE Pt is A/O x4. V/S remain WNL. Pt denies SI/HI or hallucinations. Pt shows no s/s of acute withdrawal at this time, and is stable. has medically cleared pt for d/c . Education on Hepatitis C, smoking cessation and medication side effects provided. Pt verbalizes understanding. All pt belongings are in belonging bag, pt did not have any home medications. Refuses PNU vaccination. Pt is being accompanied by [employer] at this time to be transported to rehab. All needs met.
[2016-07-19] MEDS ORDERED: PNEUMOCOCCAL 23-VAL P-SAC VAC 0.5 ML VIAL IM ONE (13:00)
== END 2016-07-17 09:31 | disposition other institution (70) | DRG 895 ==
LOC: SRC 07-11 00:18
PROVIDERS: ADMIT Internal Medicine; ATTEND Internal Medicine
PROC: HZ31ZZZ Individual Counseling for Substance Abuse Treatment, Behavioral (ICD-10-PCS; principal; 2016-07-11)
PROC: HZ2ZZZZ Detoxification Services for Substance Abuse Treatment (ICD-10-PCS; principal; 2016-07-11)
PROC: HZ41ZZZ Group Counseling for Substance Abuse Treatment, Behavioral (ICD-10-PCS; principal; 2016-07-11)
DX: F10.230 Alcohol dependence with withdrawal, uncomplicated (principal); E87.3 Alkalosis; F15.20 Other stimulant dependence, uncomplicated; F33.1 Major depressive disorder, recurrent, moderate; F13.230 Sedative, hypnotic or anxiolytic dependence with withdrawal, uncomplicated; Y90.9 Presence of alcohol in blood, level not specified; E86.0 Dehydration; F41.9 Anxiety disorder, unspecified; F17.210 Nicotine dependence, cigarettes, uncomplicated; Z81.1 Family history of alcohol abuse and dependence; G43.909 Migraine, unspecified, not intractable, without status migrainosus; F12.90 Cannabis use, unspecified, uncomplicated; R20.0 Anesthesia of skin; S61.532S Puncture wound without foreign body of left wrist, sequela; W26.8XXS Contact with other sharp object(s), not elsewhere classified, sequela; G47.00 Insomnia, unspecified; F11.21 Opioid dependence, in remission; Z79.899 Other long term (current) drug therapy; L08.9 Local infection of the skin and subcutaneous tissue, unspecified; R73.9 Hyperglycemia, unspecified
CPT/HCPCS: 36415; 70030-TC; 71010; 80307; 83690; 83735; 84443; 85025; 86705; 87340; 87806; 93005; A4663; A9579; G6040-TC; Q0163